=== PATIENT | female | born 1995 | race Hispanic/Latino ===

== ENCOUNTER → 2017-06-07 | Outpatient (CLI) | payer OTHER ==
--- NOTE | 2017-06-11 21:28 | SLEEPCENT ---
DATE OF PROCEDURE: 06/07/2017 ORDERED BY: Conrado Wright Nocturnal polysomnography was performed for evaluation of sleep physiology. 7 hours and 23 minutes of data were reviewed. There were 386 minutes of sleep identified. Sleep latency was prolonged at 27.5 minutes. Rapid eye movement (REM) sleep occurred at 111 minutes, within reasonably normal limits. Sleep architecture was fairly good with two long REM cycles noted. Overall sleep efficiency was 88.4%. The patient's electrocardiogram showed a sinus rhythm with an average heart rate of 67 beats per minute. EEG showed fairly normal waveforms for awake and sleep. There were 50 respiratory events identified of 10 seconds in duration or greater for an apnea-hypopnea index of 7.8. The events were primarily obstructive, not exclusive to sleep stage, more frequent but not exclusive to supine posture. Arousals from respiratory events occurred 9 times per hour when arousals from snoring were included. Oxygen desaturations surrounding respiratory events were seen into the 80s. There was some activity in the limb lead EMG, but limb movement arousals occurred only 1.2 times per hour. Significant snoring was noted as well. IMPRESSION: Mild obstructive sleep apnea syndrome (G47.33), apnea-hypopnea index 7.8. RECOMMENDATION: Given the oxygen desaturations and the lack of positional nature to the respiratory events, referral for formal sleep evaluation and consideration of in laboratory pressure titration would be reasonable.
== END ==
LOC: M SLEEP 19:34
PROVIDERS: ATTEND Physician Assistant Medical
DX: R40.0 Somnolence (principal)

== ENCOUNTER → 2017-08-06 | Outpatient (CLI) | payer OTHER | LOC: M RAD 13:55 | DX: N63.0 Unspecified lump in unspecified breast (principal) | CPT/HCPCS: 76642 ==

== ENCOUNTER → 2017-09-03 | Outpatient (CLI) | payer OTHER ==
[~2017-09-03] MED LIST: LIDOCAINE 1% MDV 20ML VIAL As Ordered
== END ==
LOC: M RADPRO 10:27
DX: N63.10 Unspecified lump in the right breast, unspecified quadrant (principal); Z88.0 Allergy status to penicillin; Z88.2 Allergy status to sulfonamides; Z91.011 Allergy to milk products; Z79.899 Other long term (current) drug therapy
CPT/HCPCS: 19083

== ENCOUNTER → 2018-11-11 | Outpatient (CLI) | payer OTHER ==
--- NOTE | 2018-11-11 15:21 | REP ---
Right breast focused ultrasound: History: Followup status post benign needle biopsy under ultrasound guidance right breast in September 03, 2017. Pathology report was fibroadenoma. The patient reports that the lump is getting larger and is painful. Findings: The right breast is scanned at 12 o'clock, the palpable area is evaluated. 5.6 cm from the nipple there is a 2.6 x 1.7 x 1.9 cm hypoechoic area compatible with fibroadenoma. Previously, this measured 1.8 x 1.2 x 1.2 cm. Impression: The previously biopsied fibroadenoma measures somewhat larger than on the prior study. BI-RADS category 2 benign findings. No other significant abnormality. Electronically Signed by Dario Mejia MD 11/11/2018 04:22 P
== END ==
LOC: M RAD 14:18
PROVIDERS: ATTEND Surgery
DX: D24.1 Benign neoplasm of right breast (principal)

== ENCOUNTER → 2019-02-16 | Outpatient (REF) | payer OTHER | LOC: M LAB REF 17:51 | PROVIDERS: ATTEND Physician Assistant | DX: N39.0 Urinary tract infection, site not specified (principal) ==

== ENCOUNTER → 2019-05-06 | Outpatient (REF) | payer OTHER | LOC: M LAB REF 08:44 | PROVIDERS: ATTEND Physician Assistant | DX: N39.0 Urinary tract infection, site not specified (principal) ==

== ENCOUNTER → 2019-07-28 | Outpatient (CLI) | payer OTHER ==
--- NOTE | 2019-07-28 13:34 | REP ---
Focused right breast sonography: History: Followup of right breast mass. 6-month followup. Comparison sonography: November 11 2018. On September 03, 2017, a ultrasound-guided right breast needle biopsy was performed producing diagnosis of fibroadenoma. Sonographic findings: The right breast is examined at approximate 12 o'clock position through the palpable abnormality. A well-circumscribed macrolobulated essentially homogeneous hypoechoic nodule is again seen consistent with the previously diagnosed fibroadenoma. This is slightly increased in size, currently measuring 3.1 x 2.0 x 2.0 cm. Its most recent measured dimensions were 2.6 x 1.7 x 1.9 cm. August 06, 2017, these dimensions were 1.8 x 1.2 x 1.2 cm. Impression: The known biopsy-proven fibroadenoma at 12 o'clock in the right breast continues to gradually enlarged, currently 3.1 cm in greatest diameter. BIRADS category 2 benign findings. Electronically Signed by Dario Mejia MD 07/28/2019 03:53 P
== END ==
LOC: M RAD 11:09
PROVIDERS: ATTEND Preventive Medicine Undersea and Hyperbaric Medicine
DX: N63.10 Unspecified lump in the right breast, unspecified quadrant (principal)

== ENCOUNTER → 2020-04-10 | Outpatient (CLI) | payer OTHER ==
--- NOTE | 2020-04-12 07:16 | SLEEPCENT ---
DATE: 04/10/2020 ORDERED BY: Hanane Salinas Nocturnal polysomnography was performed for the titration of pressure therapy in this patient with obstructive sleep apnea syndrome, apnea-hypopnea index 7.8. For testing, a ResMed AirFit F30 full-face mask of small size was used. There was 5 cm of water pressure initially applied to the circuit, and the lights were extinguished. There was 8 hours and 48 minutes of data reviewed. There was 445 minutes of sleep identified. Sleep latency was mildly prolonged at 34 minutes. REM latency was prolonged at 192 minutes. Sleep architecture improved later in the study on optimal pressure therapy. Overall sleep efficiency was 85.2%. The electrocardiogram showed a sinus rhythm with an average heart rate of 78 beats per minute. EEG showed normal waveforms for wake and sleep. Persistence of respiratory events prompted increases in CPAP pressure. On review of the study, optimal sleep is seen on a CPAP pressure of +11. Some limb activity was also noted during this test. Limb movement arousal index is only 2.3. IMPRESSION: Obstructive sleep apnea syndrome (G47.33). RECOMMENDATION: Nighty use of pressure therapy 11 cm of water. MTDD
== END ==
LOC: M SLEEP 20:00
PROVIDERS: ATTEND Nurse Practitioner Primary Care
DX: G47.33 Obstructive sleep apnea (adult) (pediatric) (principal)

== ENCOUNTER → 2020-12-12 | Outpatient (REF) | payer MEDICAID, OTHER ==
[2020-12-12 19:18] LABS: APPEARANCE, URINE CLEAR (CLEAR); BACTERIA, URINE AUTO NEGATIVE (NEGATIVE); BILIRUBIN, URINE AUTO NEGATIVE (NEGATIVE); BLOOD, URINE BLOOD 2+ (NEGATIVE); COLOR, URINE STRAW (YELLOW); GLUCOSE, URINE (UA) AUTO NEGATIVE (NEGATIVE); KETONE, URINE AUTO NEGATIVE (NEGATIVE); LEUKOCYTE ESTERASE, URINE AUTO NEGATIVE (NEGATIVE); MUCUS, URINE SMALL (NEGATIVE); NITRITE, URINE AUTO NEGATIVE (NEGATIVE); PROTEIN, URINE AUTO NEGATIVE (NEGATIVE); RBC, URINE AUTO 0 /HPF (0-3); SPECIFIC GRAVITY URINE AUTO 1.013 (1.002-1.035); SQUAMOUS EPITHELIAL CELL UR AU 1 /HPF (0-6); UROBILINOGEN, URINE AUTO 0.2 mg/dL (0.0-2.0); WBC, URINE AUTO 1 /HPF (0-3)
== END ==
LOC: M SFHCPLAZ 16:36
PROVIDERS: ATTEND Physician Assistant
DX: R10.2 Pelvic and perineal pain (principal)

== ENCOUNTER → 2021-09-29 | Outpatient (CLI) | payer OTHER ==
[2021-09-29 13:10] LABS: BASO % 0.4 % (0.0-1.0); EOS # 0.1 10^3/uL (0.0-0.5); EOS % 1.3 % (0.0-3.0); HEMATOCRIT 38.6 % (36.0-47.0); HEMOGLOBIN 12.4 g/dl (12.0-15.5); LYMPH # 1.6 10^3/uL (1.5-5.0); LYMPH % 22.8 % (24.0-44.0); MEAN CORPUSCULAR HEMOGLOBIN 27.7 pg (27.0-33.0); MEAN CORPUSCULAR HGB CONC 32.1 g/dl (32.0-36.5); MEAN CORPUSCULAR VOLUME 86.4 fl (80.0-96.0); MONO # 0.7 10^3/uL (0.0-0.8); MONO % 9.5 % (2.0-8.0); NEUTROPHILS # 4.6 10^3/uL (1.5-8.5); NEUTROPHILS % 65.7 % (36.0-66.0); PLATELET COUNT, AUTOMATED 235 10^3/uL (150-450); RED BLOOD COUNT 4.47 10^6/uL (4.00-5.40)
[2021-09-29 13:55] LABS: ALBUMIN 3.8 GM/DL (3.2-5.2); ALT/SGPT 34 U/L (12-78); BILIRUBIN,TOTAL 0.3 MG/DL (0.2-1.0); BLOOD UREA NITROGEN 14 MG/DL (7-18); CALCIUM LEVEL 9.8 MG/DL (8.5-10.1); CARBON DIOXIDE LEVEL 30 MEQ/L (21-32); CHLORIDE LEVEL 107 MEQ/L (98-107); CHOLESTEROL LEVEL 187 MG/DL (<200); CHOLESTEROL RISK RATIO 4.452 (<5); CREATININE FOR GFR 0.74 MG/DL (0.55-1.30); FREE T4 0.85 NG/DL (0.76-1.46); GLOMERULAR FILTRATION RATE > 60.0 (>60); GLUCOSE, FASTING 98 MG/DL (70-100); HDL CHOLESTEROL 42 MG/DL (>40); LDL CHOLESTEROL 99 MG/DL (<100); NON-HDL-C 145 MG/DL; POTASSIUM SERUM 3.9 MEQ/L (3.5-5.1); SODIUM LEVEL 140 MEQ/L (136-145); TOTAL PROTEIN 7.6 GM/DL (6.4-8.2); TRIGLYCERIDES LEVEL 228 MG/DL (<150)
== END ==
LOC: M PLALAB 10:35
PROVIDERS: ATTEND Nurse Practitioner Family
DX: R53.83 Other fatigue (principal); Z13.220 Encounter for screening for lipoid disorders

== ENCOUNTER → 2021-10-29 | Outpatient (CLI) | payer OTHER ==
[~2021-10-29] MED LIST changes: -LIDOCAINE 1% MDV 20ML VIAL As Ordered; +MAPA500C PO; +OMEP10CASR PO; +ONDA4TAB6 PO; +PRAZ1CAP PO; +TRAZ-252 PO; +ZOLO25TA PO
== END ==
LOC: M WHC 13:00 → MERGE 13:30
PROVIDERS: ATTEND Nurse Practitioner Family
DX: N94.6 Dysmenorrhea, unspecified (principal)

== ENCOUNTER → 2022-02-23 | Outpatient (CLI) | payer OTHER ==
[2022-02-23 15:43] LABS: BASO % 0.5 % (0.0-1.0); EOS # 0.1 10^3/uL (0.0-0.5); EOS % 1.4 % (0.0-3.0); HEMATOCRIT 37.4 % (36.0-47.0); HEMOGLOBIN 12.1 g/dl (12.0-15.5); LYMPH # 1.4 10^3/uL (1.5-5.0); LYMPH % 24.6 % (24.0-44.0); MEAN CORPUSCULAR HEMOGLOBIN 28.1 pg (27.0-33.0); MEAN CORPUSCULAR HGB CONC 32.4 g/dl (32.0-36.5); MONO # 0.6 10^3/uL (0.0-0.8); MONO % 10.5 % (2.0-8.0); NEUTROPHILS # 3.6 10^3/uL (1.5-8.5); NEUTROPHILS % 62.8 % (36.0-66.0); PLATELET COUNT, AUTOMATED 263 10^3/uL (150-450); WHITE BLOOD COUNT 5.7 10^3/uL (4.0-10.0)
[2022-02-23 16:06] LABS: ALBUMIN 3.9 GM/DL (3.2-5.2); ALT/SGPT 32 U/L (12-78); BILIRUBIN,TOTAL 0.5 MG/DL (0.2-1.0); BLOOD UREA NITROGEN 14 MG/DL (7-18); CALCIUM LEVEL 9.6 MG/DL (8.5-10.1); CARBON DIOXIDE LEVEL 26 MEQ/L (21-32); CHLORIDE LEVEL 107 MEQ/L (98-107); CHOLESTEROL LEVEL 189 MG/DL (<200); CHOLESTEROL RISK RATIO 4.108 (<5); GLOMERULAR FILTRATION RATE > 60.0 (>60); GLUCOSE, FASTING 86 MG/DL (70-100); HDL CHOLESTEROL 46 MG/DL (>40); LDL CHOLESTEROL 113 MG/DL (<100); NON-HDL-C 143 MG/DL; POTASSIUM SERUM 3.8 MEQ/L (3.5-5.1); SODIUM LEVEL 141 MEQ/L (136-145); TOTAL PROTEIN 7.9 GM/DL (6.4-8.2); TRIGLYCERIDES LEVEL 150 MG/DL (<150)
== END ==
LOC: M PLALAB 12:21
PROVIDERS: ATTEND Nurse Practitioner Family
DX: L70.0 Acne vulgaris (principal)

== ENCOUNTER → 2022-07-25 | Outpatient (CLI) | payer OTHER ==
[2022-07-25 08:50] LABS: HEMATOCRIT 39.8 % (36.0-47.0); HEMOGLOBIN 12.9 g/dl (12.0-15.5); MEAN CORPUSCULAR HEMOGLOBIN 28.5 pg (27.0-33.0); MEAN CORPUSCULAR HGB CONC 32.4 g/dl (32.0-36.5); MEAN CORPUSCULAR VOLUME 87.9 fl (80.0-96.0); PLATELET COUNT, AUTOMATED 253 10^3/uL (150-450); RED BLOOD COUNT 4.53 10^6/uL (4.00-5.40); WHITE BLOOD COUNT 6.6 10^3/uL (4.0-10.0)
[2022-07-25 09:11] LABS: ALKALINE PHOSPHATASE 65 U/L (46-116); ALT/SGPT 19 U/L (7.0-40); AST/SGOT 21 U/L (<34); BILIRUBIN,TOTAL 0.3 MG/DL (0.3-1.2); BLOOD UREA NITROGEN 11 MG/DL (9-23); CALCIUM LEVEL 9.5 MG/DL (8.5-10.1); CARBON DIOXIDE LEVEL 23 MMOL/L (20-31); CHLORIDE LEVEL 105 MMOL/L (98-107); CHOLESTEROL LEVEL 239 MG/DL (<200); CHOLESTEROL RISK RATIO 6.33 (<5); CREATININE FOR GFR 0.71 MG/DL (0.55-1.30); GLOMERULAR FILTRATION RATE > 60.0 (>60); GLUCOSE, FASTING 104 MG/DL (60-100); HDL CHOLESTEROL 37.7 MG/DL (>40); LDL CHOLESTEROL 155.5 MG/DL (<100); NON-HDL-C 201 MG/DL; POTASSIUM SERUM 3.8 MMOL/L (3.5-5.1); SODIUM LEVEL 140 MMOL/L (136-145); TOTAL PROTEIN 7.5 G/DL (5.7-8.2); TRIGLYCERIDES LEVEL 229 MG/DL (<150)
== END ==
LOC: M LAB 08:27
PROVIDERS: ATTEND Nurse Practitioner Family
DX: L70.0 Acne vulgaris (principal)

== ENCOUNTER → 2022-09-30 | Outpatient (CLI) | payer OTHER | LOC: M SLEEP HO 11:06 | PROVIDERS: ATTEND Physician Assistant | DX: G47.33 Obstructive sleep apnea (adult) (pediatric) (principal) ==

== ENCOUNTER → 2022-10-16 | Outpatient (CLI) | payer OTHER ==
[~2022-10-16] MED LIST changes: +PRAZ2CAP PO; +TRAZ-257 PO; +ZOLO100T PO; +[UNRECOGNIZED DRUG - CODE] PO
== END ==
LOC: M LABSMTC 09:55
PROVIDERS: ATTEND Anesthesiology
DX: Z01.818 Encounter for other preprocedural examination (principal); Z11.52 Encounter for screening for COVID-19

== ENCOUNTER 2022-10-21 09:34 | Day surgery (SDC) | payer OTHER ==
[~2022-10-21] VITALS: Ht 162.6 cm; Wt 77.5 kg
[~2022-10-21 09:34] MED LIST changes: +CLINDAMYCIN 600 MG in IV 1 EA IV ONE
[2022-10-21] MEDS ORDERED: LR 1,000 ML IV SCH ×2 (10:00→13:25)
[2022-10-21] MEDS ORDERED: KETOROLAC 60MG 2ML VIAL As Ordered ONE (12:38)
[2022-10-21] MEDS ORDERED: fentaNYL 100 MCG/2 ML INJECTION As Ordered ONE (12:38)
[2022-10-21] MEDS ORDERED: ONDANSETRON 4MG 2ML VIAL As Ordered ONE (12:38)
[2022-10-21] MEDS ORDERED: propofoL 200 MG/20 ML VIAL As Ordered ONE (12:38)
[2022-10-21] MEDS ORDERED: MIDAZOLAM INJ 2MG/2ML VIAL As Ordered ONE (12:38)
[2022-10-21] MEDS ORDERED: ACETAMINOPHEN 1000MG 100ML IV BAG As Ordered ONE (12:38)
[2022-10-21] MEDS ORDERED: LIDOCAINE PRES-FREE 2% 10ML AMP As Ordered ONE (12:38)
[2022-10-21] MEDS ORDERED: BUPIVACAINE HCL 0.5% 30ML VIAL As Ordered ONE (12:50)
[2022-10-21] MEDS ORDERED: LIDOCAINE 1% SDV 30ML VIAL As Ordered ONE (12:50)
[2022-10-21] MEDS ORDERED: HYDROMORPHONE HCL 0.5 MG/ 0.5 ML SYRINGE IV PRN (13:25)
[2022-10-21] MEDS ORDERED: oxyCODONE 5MG TAB PO PRN (13:25)
[2022-10-21] MEDS ORDERED: ONDANSETRON 4MG 2ML VIAL IV PRN (13:25)
[2022-10-21] MEDS ORDERED: fentaNYL 100 MCG/2 ML INJECTION IV PRN (13:25)
[2022-10-21] MEDS ORDERED: HYDR-3713 PO (13:28)
[2022-10-21 14:15] VITALS: BP 119/63
== END 2022-10-21 14:50 | disposition home or self-care (01) ==
LOC: M SDC 09:34
PROVIDERS: ATTEND Podiatrist Foot & Ankle Surgery
DX: M21.612 Bunion of left foot (principal); K21.9 Gastro-esophageal reflux disease without esophagitis; F43.10 Post-traumatic stress disorder, unspecified; F41.9 Anxiety disorder, unspecified; F32.A Depression, unspecified; G47.33 Obstructive sleep apnea (adult) (pediatric); Z88.0 Allergy status to penicillin; Z88.2 Allergy status to sulfonamides; E73.9 Lactose intolerance, unspecified; Z79.899 Other long term (current) drug therapy
CPT/HCPCS: 28299; 76000; 81025; 88300; 97116; C1713; J0131; J1100; J1885; J2250; J2405; J3010

== ENCOUNTER → 2023-07-30 | Outpatient (REF) | payer OTHER ==
[~2023-07-30] MED LIST changes: -CLINDAMYCIN 600 MG in IV 1 EA IV ONE; +HYDR-3713 PO
[2023-07-30 19:38] LABS: APPEARANCE, URINE HAZY (CLEAR); BACTERIA, URINE AUTO 2+ (NEGATIVE); BILIRUBIN, URINE AUTO NEGATIVE (NEGATIVE); BLOOD, URINE BLOOD 2+ (NEGATIVE); COLOR, URINE AMBER (YELLOW); GLUCOSE, URINE (UA) AUTO NEGATIVE (NEGATIVE); KETONE, URINE AUTO NEGATIVE (NEGATIVE); LEUKOCYTE ESTERASE, URINE AUTO 1+ (NEGATIVE); MUCUS, URINE MODERATE (NEGATIVE); NITRITE, URINE AUTO POSITIVE (NEGATIVE); PROTEIN, URINE AUTO 1+ mg/dL (NEGATIVE); RBC, URINE AUTO 22 /HPF (0-3); SPECIFIC GRAVITY URINE AUTO 1.025 (1.002-1.035); SQUAMOUS EPITHELIAL CELL UR AU 6 /HPF (0-6); WBC, URINE AUTO 107 /HPF (0-3)
== END ==
LOC: M SFHCPLAZ 17:10
PROVIDERS: ATTEND Family Medicine
DX: R30.0 Dysuria (principal)

== ENCOUNTER 2023-09-01 17:25 | Emergency (ER) | payer OTHER ==
[~2023-09-01] VITALS: Ht 165.1 cm; Wt 78.1 kg
[2023-09-01 17:28] VITALS: TEMP 97.7
[2023-09-01] MEDS ORDERED: VENL75CA47 PO (17:38)
[2023-09-01] MEDS: NS 1,000 ML IV ONE (20:18)
[2023-09-01 20:44] LABS: BASO % 0.3 % (0.0-1.0); EOS % 0.2 % (0.0-3.0); HEMATOCRIT 38.6 % (36.0-47.0); HEMOGLOBIN 12.9 g/dl (12.0-15.5); LYMPH # 1.5 10^3/uL (1.5-5.0); LYMPH % 23.8 % (24.0-44.0); MEAN CORPUSCULAR HEMOGLOBIN 28.5 pg (27.0-33.0); MEAN CORPUSCULAR HGB CONC 33.4 g/dl (32.0-36.5); MEAN CORPUSCULAR VOLUME 85.2 fl (80.0-96.0); MONO # 0.6 10^3/uL (0.0-0.8); MONO % 9.9 % (2.0-8.0); NEUTROPHILS % 65.5 % (36.0-66.0); PLATELET COUNT, AUTOMATED 267 10^3/uL (150-450); RED BLOOD COUNT 4.53 10^6/uL (4.00-5.40); WHITE BLOOD COUNT 6.1 10^3/uL (4.0-10.0)
[2023-09-01 20:57] LABS: LIPASE 34 U/L (12-53)
[2023-09-01 20:59] LABS: ALBUMIN 4.2 G/DL (3.2-5.2); ALKALINE PHOSPHATASE 58 U/L (46-116); ALT/SGPT 35 U/L (7.0-40); AST/SGOT 22 U/L (<34); BILIRUBIN,DIRECT 0.2 MG/DL (<0.4); BILIRUBIN,TOTAL 0.5 MG/DL (0.3-1.2); BLOOD UREA NITROGEN 19 MG/DL (9-23); CALCIUM LEVEL 9.7 MG/DL (8.5-10.1); CARBON DIOXIDE LEVEL 27 MMOL/L (20-31); CHLORIDE LEVEL 107 MMOL/L (98-107); GLOMERULAR FILTRATION RATE > 60.0 (>60); GLUCOSE, FASTING 97 MG/DL (60-100); MAGNESIUM LEVEL 1.8 MG/DL (1.8-2.4); POTASSIUM SERUM 3.8 MMOL/L (3.5-5.1); SODIUM LEVEL 142 MMOL/L (136-145); TOTAL PROTEIN 7.6 G/DL (5.7-8.2)
[2023-09-01 21:01] LABS: THYROID STIMULATING HORMONE 0.969 uIU/ML (0.55-4.78)
[2023-09-01 23:15] VITALS: BP 161/75; O2SAT 98
[2023-09-02] MEDS ORDERED: LACT30006 PO (21:49)
== END 2023-09-01 23:15 | disposition home or self-care (01) ==
LOC: M ED 17:25
DX: T88.7XXA Unspecified adverse effect of drug or medicament, initial encounter (principal); R41.0 Disorientation, unspecified; F32.A Depression, unspecified; F41.9 Anxiety disorder, unspecified; Z88.0 Allergy status to penicillin; Z88.2 Allergy status to sulfonamides; Z91.011 Allergy to milk products; Z91.048 Other nonmedicinal substance allergy status; Z79.83 Long term (current) use of bisphosphonates; Z79.899 Other long term (current) drug therapy

== ENCOUNTER 2023-09-02 19:20 | Inpatient (IN) | payer OTHER ==
[~2023-09-02] VITALS: Ht 165.1 cm; Wt 78.9 kg
[~2023-09-02 19:20] MED LIST changes: +VENL75CA47 PO
[2023-09-02 20:21] LABS: HEMATOCRIT 39.6 % (36.0-47.0); HEMOGLOBIN 13.2 g/dl (12.0-15.5); MEAN CORPUSCULAR HEMOGLOBIN 28.6 pg (27.0-33.0); MEAN CORPUSCULAR HGB CONC 33.3 g/dl (32.0-36.5); MEAN CORPUSCULAR VOLUME 85.7 fl (80.0-96.0); PLATELET COUNT, AUTOMATED 254 10^3/uL (150-450); RED BLOOD COUNT 4.62 10^6/uL (4.00-5.40); WHITE BLOOD COUNT 4.8 10^3/uL (4.0-10.0)
[2023-09-02 20:45] LABS: ETHYL ALCOHOL (ETHANOL) 0.009 % (0.000-0.010)
[2023-09-02 20:47] LABS: ALBUMIN 3.9 G/DL (3.2-5.2); ALKALINE PHOSPHATASE 61 U/L (46-116); ALT/SGPT 146 U/L (7.0-40); AST/SGOT 107 U/L (<34); BILIRUBIN,DIRECT 0.3 MG/DL (<0.4); BILIRUBIN,TOTAL 0.7 MG/DL (0.3-1.2); BLOOD UREA NITROGEN 16 MG/DL (9-23); CALCIUM LEVEL 9.2 MG/DL (8.5-10.1); CARBON DIOXIDE LEVEL 26 MMOL/L (20-31); CHLORIDE LEVEL 106 MMOL/L (98-107); CREATININE FOR GFR 0.65 MG/DL (0.55-1.30); GLOMERULAR FILTRATION RATE > 60.0 (>60); GLUCOSE, FASTING 111 MG/DL (60-100); POTASSIUM SERUM 3.5 MMOL/L (3.5-5.1); SALICYLATE LEVEL < 3.0 MG/DL (<30); SODIUM LEVEL 140 MMOL/L (136-145); TOTAL PROTEIN 7.4 G/DL (5.7-8.2)
[2023-09-02 21:09] LABS: AMPHETAMINES LEVEL URINE NEGATIVE (NEGATIVE); BARBITURATES URINE NEGATIVE (NEGATIVE); BENZODIAZEPINES URINE NEGATIVE (NEGATIVE); CANNABINOIDS URINE NEGATIVE (NEGATIVE); COCAINE METABOLITE URINE NEGATIVE (NEGATIVE); METHADONE URINE NEGATIVE (NEGATIVE); OPIATES URINE NEGATIVE (NEGATIVE); PHENCYCLIDINE URINE NEGATIVE (NEGATIVE)
[2023-09-02] MEDS ORDERED: LACT30006 PO (21:49)
[2023-09-02] MEDS ORDERED: HOME MED LIST COMPLETE! XX SCH (21:50)
[2023-09-02] MEDS: LORazepam 2 MG TAB PO STA (23:20)
[2023-09-03] MEDS ORDERED: MAALOX 30 ML SUSP *UDC PO PRN (03:05)
[2023-09-03] MEDS ORDERED: IBUPROFEN 400MG TAB PO PRN (03:05)
[2023-09-03] MEDS ORDERED: MOM 30ML SUSPENSION UDC PO PRN (03:05)
[2023-09-03 12:01] VITALS: BP 134/82; TEMP 98.6; O2SAT 96
[2023-09-03] MEDS: diphenhydrAMINE 25MG CAP PO PRN (17:52)
[2023-09-03] MEDS: traZODone 50 MG TAB PO PRN (20:41)
[2023-09-03] MEDS: OLANZapine ORAL DISINTEGRATING TAB 5MG PO PRN (20:55)
[2023-09-04 07:47] LABS: CHOLESTEROL RISK RATIO 3.71 (<5); HDL CHOLESTEROL 33.4 MG/DL (>40); LDL CHOLESTEROL 71.8 MG/DL (<100); NON-HDL-C 90.6 MG/DL
[2023-09-04 08:51] LABS: ALBUMIN 3.7 G/DL (3.2-5.2); BILIRUBIN,DIRECT 0.3 MG/DL (<0.4); BILIRUBIN,TOTAL 0.8 MG/DL (0.3-1.2); TOTAL PROTEIN 6.9 G/DL (5.7-8.2)
[2023-09-04 16:30] VITALS: BP 119/68; TEMP 97.8; O2SAT 97
[2023-09-05 06:29] VITALS: BP 117/63; TEMP 97.1; O2SAT 96
[2023-09-05 15:25] VITALS: BP 115/70; TEMP 97.9; O2SAT 100
[2023-09-05] MEDS: OLANZapine ORAL DISINTEGRATING TAB 5MG PO PRN (23:12)
[2023-09-06] MEDS: HALOPERIDOL 5MG/ML 1ML VIAL IM STA (00:56)
[2023-09-06] MEDS: LORazepam 2 MG/ML 1ML VIAL IM STA (00:59)
[2023-09-06 01:30] VITALS: BP 115/70; TEMP 97.9; O2SAT 100
[2023-09-06 01:45] VITALS: BP 114/58; TEMP 97.5; O2SAT 100
[2023-09-06 02:00] VITALS: BP 117/68; TEMP 97.5; O2SAT 100
[2023-09-06 02:15] VITALS: BP 104/55; TEMP 97.5; O2SAT 100
[2023-09-06 02:30] VITALS: BP 108/57; TEMP 97.5; O2SAT 100
[2023-09-06 02:45] VITALS: BP 108/57; TEMP 97.5; O2SAT 100
[2023-09-06] MEDS: ARIPiprazole 10 MG TAB PO SCH (21:56)
[2023-09-07 06:04] VITALS: BP 131/73; TEMP 97.7; O2SAT 95
[2023-09-07] MEDS: ACETAMINOPHEN TAB 650MG DOSE (2X325MG) PO PRN (06:48)
[2023-09-07] MEDS: OLANZapine ORAL DISINTEGRATING TAB 5MG PO ONE (11:21)
[2023-09-07 18:26] VITALS: BP 110/68; TEMP 97.7; O2SAT 100
[2023-09-08 06:39] VITALS: BP 126/75; TEMP 97.5; O2SAT 99
[2023-09-08 18:21] VITALS: BP 128/69; TEMP 97.8
[2023-09-08] MEDS: ARIPiprazole 15 MG TAB (AbiLIFY) PO SCH (20:28)
[2023-09-09 06:41] VITALS: BP 140/81; TEMP 97; O2SAT 99
[2023-09-09] MEDS ORDERED: BENZTROPINE 1 MG TAB PO PRN (11:05)
[2023-09-09] MEDS: ARIPiprazole MONOHYDRATE 400 MG INJ (ABILIFY)(FREE PSY INPT ONLY) IM ONE (14:11)
[2023-09-09 17:56] VITALS: BP 138/61; TEMP 98; O2SAT 100
[2023-09-10 06:19] VITALS: BP 117/72; TEMP 97.7; O2SAT 100
[2023-09-10 16:21] VITALS: BP 125/61; TEMP 98.2; O2SAT 98
[2023-09-11 06:43] VITALS: BP 119/61; TEMP 98; O2SAT 100
[2023-09-11 16:15] VITALS: BP 134/61; TEMP 97.7; O2SAT 100
[2023-09-12 06:27] VITALS: BP 117/70; TEMP 97.4; O2SAT 100
[2023-09-12 16:05] VITALS: BP 132/61; TEMP 98.6; O2SAT 100
[2023-09-13 06:05] VITALS: BP 126/62; TEMP 98.5; O2SAT 98
[2023-09-13] MEDS ORDERED: ABIL1TAB12 PO (10:10)
[2023-09-13] MEDS ORDERED: TRAZ-252 PO (10:10)
[2023-09-13] MEDS ORDERED: ABIL1INJ2 IM (10:13)
== END 2023-09-13 11:41 | disposition home or self-care (01) | DRG 753 ==
LOC: M ED 19:20 → M ED INP 09-03 03:03 → M PSY 09-03 11:08
PROVIDERS: ADMIT Student in an Organized Health Care Education/Training Program; ATTEND Student in an Organized Health Care Education/Training Program
DX: F31.2 Bipolar disorder, current episode manic severe with psychotic features (principal); E73.9 Lactose intolerance, unspecified; Z88.0 Allergy status to penicillin; Z88.2 Allergy status to sulfonamides; Z88.8 Allergy status to other drugs, medicaments and biological substances; Z79.899 Other long term (current) drug therapy; Z91.040 Latex allergy status; Z62.810 Personal history of physical and sexual abuse in childhood

== ENCOUNTER 2023-09-18 10:09 | Inpatient (IN) | payer OTHER ==
[~2023-09-18] VITALS: Ht 165.1 cm; Wt 78.1 kg
[~2023-09-18 10:09] MED LIST changes: +ABIL1INJ2 IM; +ABIL1TAB12 PO; +LACT30006 PO
[2023-09-18 10:55] LABS: HEMATOCRIT 39.9 % (36.0-47.0); HEMOGLOBIN 13.5 g/dl (12.0-15.5); MEAN CORPUSCULAR HEMOGLOBIN 29.1 pg (27.0-33.0); MEAN CORPUSCULAR HGB CONC 33.8 g/dl (32.0-36.5); PLATELET COUNT, AUTOMATED 235 10^3/uL (150-450); RED BLOOD COUNT 4.64 10^6/uL (4.00-5.40); WHITE BLOOD COUNT 6.4 10^3/uL (4.0-10.0)
[2023-09-18 11:26] LABS: AMPHETAMINES LEVEL URINE NEGATIVE (NEGATIVE); BARBITURATES URINE NEGATIVE (NEGATIVE); BENZODIAZEPINES URINE NEGATIVE (NEGATIVE); CANNABINOIDS URINE NEGATIVE (NEGATIVE); COCAINE METABOLITE URINE NEGATIVE (NEGATIVE); METHADONE URINE NEGATIVE (NEGATIVE); OPIATES URINE NEGATIVE (NEGATIVE); PHENCYCLIDINE URINE NEGATIVE (NEGATIVE)
[2023-09-18 11:28] LABS: ETHYL ALCOHOL (ETHANOL) < 0.003 % (0.000-0.010)
[2023-09-18 11:30] LABS: ALBUMIN 4.2 G/DL (3.2-5.2); ALKALINE PHOSPHATASE 67 U/L (46-116); ALT/SGPT 33 U/L (7.0-40); AST/SGOT 14 U/L (<34); BILIRUBIN,DIRECT 0.3 MG/DL (<0.4); BILIRUBIN,TOTAL 0.7 MG/DL (0.3-1.2); BLOOD UREA NITROGEN 15 MG/DL (9-23); CALCIUM LEVEL 9.5 MG/DL (8.5-10.1); CARBON DIOXIDE LEVEL 26 MMOL/L (20-31); CHLORIDE LEVEL 105 MMOL/L (98-107); CREATININE FOR GFR 0.64 MG/DL (0.55-1.30); GLOMERULAR FILTRATION RATE > 60.0 (>60); GLUCOSE, FASTING 110 MG/DL (60-100); POTASSIUM SERUM 3.8 MMOL/L (3.5-5.1); SALICYLATE LEVEL < 3.0 MG/DL (<30); SODIUM LEVEL 138 MMOL/L (136-145); TOTAL PROTEIN 7.4 G/DL (5.7-8.2)
[2023-09-18 11:32] LABS: THYROID STIMULATING HORMONE 1.268 uIU/ML (0.55-4.78)
[2023-09-18 11:36] LABS: HCG, SERUM QUALITATIVE NEGATIVE (NEGATIVE)
[2023-09-18] MEDS ORDERED: IBUPROFEN 400MG TAB PO PRN (13:35)
[2023-09-18] MEDS ORDERED: MOM 30ML SUSPENSION UDC PO PRN (13:35)
[2023-09-18] MEDS ORDERED: NICOTINE 21MG/24HR 1 EA TRANSDERMAL TD PRN (13:35)
[2023-09-18] MEDS ORDERED: MAALOX 30 ML SUSP *UDC PO PRN (13:35)
[2023-09-18] MEDS ORDERED: HOME MED LIST COMPLETE! XX SCH (15:15)
[2023-09-18] MEDS ORDERED: TRAZ-252 PO (15:15)
[2023-09-18] MEDS ORDERED: ABIL1INJ2 IM (15:15)
[2023-09-18 16:25] VITALS: BP 129/70; TEMP 97.4; O2SAT 100
[2023-09-18] MEDS: ACETAMINOPHEN TAB 650MG DOSE (2X325MG) PO PRN (18:03)
[2023-09-18] MEDS: traZODone 50 MG TAB PO PRN (20:14)
[2023-09-19] MEDS: OLANZapine 5 MG TAB PO PRN (01:41)
[2023-09-19 06:38] VITALS: BP 136/83; TEMP 97.5; O2SAT 97
[2023-09-19] MEDS: BENZTROPINE 0.5 MG TAB PO SCH (11:50)
[2023-09-19] MEDS: diazePAM 5MG TABLET PO ONE (11:50)
[2023-09-19 16:29] VITALS: BP 132/60; TEMP 98; O2SAT 100
[2023-09-20 06:27] VITALS: BP 124/86; TEMP 98; O2SAT 97
[2023-09-20] MEDS: PILL CUTTER 1 EACH XX PRN (08:18)
[2023-09-20 17:46] VITALS: BP 132/74; TEMP 98.1; O2SAT 98
[2023-09-20] MEDS: traZODone 50 MG TAB PO SCH (20:18)
[2023-09-20] MEDS: OLANZapine 5 MG TAB PO SCH (20:18)
[2023-09-20] MEDS: HYDROCORTISONE 1% CREAM 30GM TOP SCH (20:19)
[2023-09-21 06:14] VITALS: BP 136/78; TEMP 97.2; O2SAT 96
[2023-09-21] MEDS: LORazepam 1 MG TAB PO SCH (09:50)
[2023-09-21 17:06] VITALS: BP 132/71; TEMP 98.6; O2SAT 97
[2023-09-22 06:31] VITALS: BP 150/73; TEMP 97; O2SAT 98
[2023-09-22 17:10] VITALS: BP 114/66; TEMP 97.6
[2023-09-23 06:27] VITALS: BP 118/78; TEMP 97.6; O2SAT 99
[2023-09-23 14:51] VITALS: BP 117/73; TEMP 98; O2SAT 97
[2023-09-24 06:21] VITALS: BP 120/84; TEMP 97.3; O2SAT 98
[2023-09-24] MEDS ORDERED: BENZ0.5T2 PO (10:58)
[2023-09-24] MEDS ORDERED: ATIV1TAB7 PO (10:58)
[2023-09-24] MEDS ORDERED: TRAZ-252 PO (10:58)
[2023-09-24] MEDS ORDERED: OLAN1TAB16 PO ×2 (10:58)
[2023-09-24] MEDS ORDERED: NICO21PAT TD (10:58)
== END 2023-09-24 11:13 | disposition home or self-care (01) | DRG 750 ==
LOC: M ED 10:09 → M ED INP 13:33 → M PSY 16:23
PROVIDERS: ADMIT Student in an Organized Health Care Education/Training Program; ATTEND Student in an Organized Health Care Education/Training Program
DX: F25.0 Schizoaffective disorder, bipolar type (principal); F20.2 Catatonic schizophrenia; Z88.0 Allergy status to penicillin; Z88.2 Allergy status to sulfonamides; E73.9 Lactose intolerance, unspecified; Z79.899 Other long term (current) drug therapy

== ENCOUNTER → 2024-01-21 | Outpatient (CLI) | payer OTHER ==
[~2024-01-21] MED LIST changes: +ATIV1TAB7 PO; +BENZ0.5T2 PO; +LORA1TAB23 PO; +NICO21PAT TD; +OLAN1TAB16 PO; +ONDA-282 PO; -ONDA4TAB6 PO
== END ==
LOC: M PLALAB 08:39
PROVIDERS: ATTEND Nurse Practitioner Psychiatric/Mental Health
DX: F84.0 Autistic disorder (principal); Z79.899 Other long term (current) drug therapy; Z53.9 Procedure and treatment not carried out, unspecified reason

== ENCOUNTER → 2024-01-28 | Outpatient (CLI) | payer OTHER ==
[2024-01-28 10:17] LABS: BASO % 0.5 % (0.0-1.0); EOS # 0.2 10^3/uL (0.0-0.5); EOS % 3.8 % (0.0-3.0); HEMATOCRIT 41.8 % (36.0-47.0); HEMOGLOBIN 13.8 g/dl (12.0-15.5); LYMPH # 1.6 10^3/uL (1.5-5.0); LYMPH % 26.4 % (24.0-44.0); MEAN CORPUSCULAR HEMOGLOBIN 29.4 pg (27.0-33.0); MEAN CORPUSCULAR VOLUME 89.1 fl (80.0-96.0); MONO # 0.6 10^3/uL (0.0-0.8); NEUTROPHILS # 3.7 10^3/uL (1.5-8.5); NEUTROPHILS % 60.1 % (36.0-66.0); PLATELET COUNT, AUTOMATED 243 10^3/uL (150-450); RED BLOOD COUNT 4.69 10^6/uL (4.00-5.40); WHITE BLOOD COUNT 6.1 10^3/uL (4.0-10.0)
[2024-01-28 10:52] LABS: ALKALINE PHOSPHATASE 64 U/L (46-116); ALT/SGPT 26 U/L (7.0-40); AST/SGOT 9 U/L (<34); BILIRUBIN,TOTAL 0.7 MG/DL (0.3-1.2); BLOOD UREA NITROGEN 20 MG/DL (9-23); CARBON DIOXIDE LEVEL 29 MMOL/L (20-31); CHLORIDE LEVEL 106 MMOL/L (98-107); CHOLESTEROL LEVEL 190 MG/DL (<200); CHOLESTEROL RISK RATIO 5.03 (<5); CREATININE FOR GFR 0.83 MG/DL (0.55-1.30); GLOMERULAR FILTRATION RATE > 60.0 (>60); GLUCOSE, FASTING 94 MG/DL (60-100); HDL CHOLESTEROL 37.7 MG/DL (>40); LDL CHOLESTEROL 115.5 MG/DL (<100); NON-HDL-C 152.3 MG/DL; POTASSIUM SERUM 4.6 MMOL/L (3.5-5.1); SODIUM LEVEL 139 MMOL/L (136-145); TOTAL PROTEIN 7.5 G/DL (5.7-8.2); TRIGLYCERIDES LEVEL 184 MG/DL (<150)
[2024-01-28 10:53] LABS: FREE T4 1.24 NG/DL (0.89-1.76)
== END ==
LOC: M PLALAB 08:24
PROVIDERS: ATTEND Nurse Practitioner Family
DX: Z00.00 Encounter for general adult medical examination without abnormal findings (principal); E78.2 Mixed hyperlipidemia; E55.9 Vitamin D deficiency, unspecified

== ENCOUNTER → 2024-02-12 | Outpatient (CLI) | payer OTHER ==
[2024-02-12 09:41] LABS: MAGNESIUM LEVEL 1.8 MG/DL (1.8-2.4)
[2024-02-12 09:42] LABS: FREE T4 1.2 NG/DL (0.89-1.76)
[2024-02-12 09:43] LABS: PERCENT SATURATION 14.3 % (13.2-45.0); THYROID STIMULATING HORMONE 1.901 uIU/ML (0.55-4.78); THYROXINE (T4) 5.5 UG/DL (4.5-10.9)
[2024-02-12 09:44] LABS: FERRITIN 27.6 NG/ML (7.3-270.7); TOTAL 25(OH) VITAMIN D 28.3 NG/ML (20.0-100.0)
== END ==
LOC: M LAB 08:28
PROVIDERS: ATTEND Nurse Practitioner Psychiatric/Mental Health
DX: F84.0 Autistic disorder (principal)

== ENCOUNTER → 2025-02-22 | Outpatient (CLI) | payer OTHER ==
[2025-02-22 15:16] LABS: BASO # 0.0 10^3/uL (0.0-0.2); BASO % 0.8 % (0.0-1.0); EOS # 0.1 10^3/uL (0.0-0.5); EOS % 2.0 % (0.0-3.0); LYMPH # 1.5 10^3/uL (1.5-5.0); LYMPH % 29.4 % (24.0-44.0); MONO # 0.4 10^3/uL (0.0-0.8); MONO % 7.5 % (2.0-8.0); NEUTROPHILS # 3.1 10^3/uL (1.5-8.5); NEUTROPHILS % 59.7 % (36.0-66.0); PLATELET COUNT, AUTOMATED 246 10^3/uL (150-450)
[2025-02-22 15:50] LABS: ALT/SGPT 37 U/L (7.0-40); AST/SGOT 17 U/L (<34); CALCIUM LEVEL 9.7 MG/DL (8.5-10.1); CARBON DIOXIDE LEVEL 27 MMOL/L (20-31); CHLORIDE LEVEL 104 MMOL/L (98-107); CHOLESTEROL LEVEL 201 MG/DL (<200); CHOLESTEROL RISK RATIO 4.07 (<5); CREATININE FOR GFR 0.88 MG/DL (0.55-1.30); GLOMERULAR FILTRATION RATE > 90.0 (>60); LDL CHOLESTEROL 124.5 MG/DL (<100); NON-HDL-C 151.7 MG/DL; POTASSIUM SERUM 4.5 MMOL/L (3.5-5.1); SODIUM LEVEL 143 MMOL/L (136-145); TRIGLYCERIDES LEVEL 136 MG/DL (<150)
[2025-02-22 15:52] LABS: FREE T4 1.23 NG/DL (0.89-1.76); TOTAL 25(OH) VITAMIN D 46.9 NG/ML (20.0-100.0)
== END ==
LOC: M PLALAB 14:00
PROVIDERS: ATTEND Nurse Practitioner Family
DX: Z00.00 Encounter for general adult medical examination without abnormal findings (principal); E78.2 Mixed hyperlipidemia; E55.9 Vitamin D deficiency, unspecified; R53.83 Other fatigue

== ENCOUNTER → 2025-05-31 | Outpatient (REF) | payer OTHER | LOC: M SFHCPLAZ 13:00 | PROVIDERS: ATTEND Physician Assistant Medical | DX: J06.9 Acute upper respiratory infection, unspecified (principal) ==